=== PATIENT | female | born 1955 | race Caucasian/White ===

== ENCOUNTER 2021-06-11 13:13 | Emergency (ER) | payer MEDICARE ==
[~2021-06-11] VITALS: Ht 168.9 cm; Wt 78.1 kg
[2021-06-11 13:15] VITALS: BP_DIAS 61
[2021-06-11] MEDS ORDERED: HYDROcodone/APAP 5/325MG 1 TAB TABLET PO ONE (13:30)
--- NOTE | 2021-06-11 13:30 | PHYS DOC ---
Past History Past Medical History: Anxiety, Cancer (lung) Additional Past Medical Histor: IBS (OLIVIA KINNEY DO) Past Surgical History: Appendectomy, Cholecystectomy Additional Past Surgical Histo: Lobectomy (OLIVIA KINNEY DO) Smoking: Non-smoker Alcohol Use: Occasionally Drug Use: None (OLIVIA KINNEY DO) General Adult EDM: Chief Complaint: ANKLE PROBLEM HPI: HPI: Patient is a 65-year-old female who presents to the emergency department for left ankle pain and swelling that occurred after she slipped on a wet floor and fell. Patient reports that she heard a pop. She rates her pain 7 out of 10. No treatment prior to arrival. Patient reports decreased flexion due to pain and swelling. She denies hitting her head, loss of consciousness or decreased sensation to her foot. (VIKASH CRAIN APRN) Review of Systems: Review of Systems: HENT: See HPI Musculoskeletal: See HPI Integument: See HPI Neurologic: See HPI (VIKASH CRAIN APRN) Allergies: Allergies: Allergies Coded Allergies Type Severity Reaction Last Updated Verified sulfamethoxazole Allergy Unknown 06/11/21 Yes trimethoprim Allergy Unknown 06/11/21 Yes (VIKASH CRAIN APRN) Physical Exam: PE: Constitutional: Well developed, well nourished, no acute distress, non-toxic appearance. [] HENT: Normocephalic, atraumatic, bilateral external ears normal, oropharynx moist, no oral exudates, nose normal. [] Eyes: PERRL EOMI, conjunctiva normal, no discharge. [] Neck: Normal range of motion no stridor Cardiovascular: Normal peripheral perfusion Lungs & Thorax: Normal work of breathing, no tachypnea Abdomen: Soft and flat Skin: Warm, dry, no erythema, no rash. [] Back: No tenderness, normal range of motion Extremities: No tenderness, no cyanosis, no clubbing, ROM intact, no edema. [] Left ankle: Swelling noted to lateral aspect of left ankle, pain with patient to lateral aspect of left ankle, decreased flexion due to pain and swelling, full extension noted, patient able to move toes, neuro intact, no open wounds Neurologic: Alert and oriented X 3, normal motor function, normal sensory function, no focal deficits noted. [] Psychologic: Affect normal, judgement normal, mood normal. [] (VIKASH CRAIN APRN) EKG: EKG: [] (VIKASH CRAIN APRN) Radiology/Procedures: Radiology/Procedures: []PROCEDURE: ANKLE LEFT 3V Left ankle 3 views. HISTORY: Fall, ankle injury, swelling, pain 3 views were taken of the left ankle. There is a fracture of the distal fibula and lateral malleolus. There is mild displacement on the lateral view. There is lateral soft tissue swelling. No other fracture is noted. IMPRESSION: 1. Fracture distal fibula extending to the lateral malleolus. 2. Lateral soft tissue swelling. Electronically signed by: Mikey Garcia MD (06/11/2021 1:47 PM) [id number] DICTATED AND SIGNED BY: MIKEY GARCIA MD DATE: 06/11/21 3303 CC: ALIN HEARN MD; VIKASH CRAIN APRN ~ (VIKASH CRAIN APRN) Heart Score: C/O Chest Pain: N/A Risk Factors: Risk Factors: DM, Current or recent (<one month) smoker, HTN, HLP, family history of CAD, obesity. Risk Scores: Score 0 - 3: 2.5% MACE over next 6 weeks - Discharge Home Score 4 - 6: 20.3% MACE over next 6 weeks - Admit for Clinical Observation Score 7 - 10: 72.7% MACE over next 6 weeks - Early Invasive Strategies (VIKASH CRAIN APRN) Course & Med Decision Making: Course & Med Decision Making Pertinent Labs and Imaging studies reviewed. (See chart for details) [] Patient presents to the emergency department today for left ankle pain after she slipped on a wet floor and fell and heard a pop. Patient relates showed Fracture distal fibula extending to the lateral malleolus. She does not have any proximal tenderness. Patient's ankle placed in a posterior stirrup splint. She is neurovascularly intact. Splint placement. Patient discharged home with pain medication. Advised to apply ice and elevate. She was given Ortho referral. I discussed with patient all findings and diagnostic testing as well as the need to follow-up with PCP for further evaluation and treatment or return to the ER if any new or worsening symptoms. Strict return precautions were also discussed at length. Patient voiced understanding and agreement with the plan. Patient is hemodynamically stable at the time of disposition. (VIKASH CRAIN APRN) Dragon Disclaimer: Dragon Disclaimer: This electronic medical record was generated, in whole or in part, using a voice recognition dictation system. (VIKASH CRAIN SECURITIES TRADER) Departure Departure: Impression: Primary Impression: Fibula fracture Qualified Codes: S82.832A - Other fracture of upper and lower end of left fibula, initial encounter for closed fracture Disposition: HOME / SELF CARE / HOMELESS Condition: GOOD Referrals: ALIN HEARN MD (PCP) SEMAJ ARANA II, MD Patient Instructions: Fibular Fracture, Ankle, Adult, Treated with or without Immobilization Additional Instructions: [facility] You are seen in the emergency department today for an ankle injury. You have a fibula fracture. You had a splint placed to help with pain and healing. You will need to follow-up with the orthopedic doctors in the orthopedic clinic as soon as possible. Please see attached information regarding follow-up physician. You should perform range of motion exercises to prevent stiffness of your joints. Splints help with the pain and can promote healing but immobility can cause chronic pain over time. Please refer to these attached instructions regarding range of motion exercises. Keep the splint clean and dry avoid getting it wet. If the splint gets wet you will need to have it replaced. You should use ice and elevation to help with the swelling and pain. For the first 24 hours apply ice 20 minutes on 20 minutes off 4 times per day. Ensure that ice is in a plastic bag as to not get the splint wet. You may take NSAID medications (ibuprofen, naproxen) to help with the pain. You are being discharged home with a pain medication which is hydrocodone and Tylenol in combination tablet. This medication may cause sedation so do not take when he needs to be alert, try to be abusable or with alcohol. [facility] develop any of the following symptoms: Increasing pain that does not improve with treatments. New numbness or tingling Warmth, redness, skin discoloration, skin breakdown, drainage from under splint or near splinted area. Increasing inability to move your extremity or digits. Foul odor coming from splint Fevers or chills Nausea or vomiting Persistent lightheadedness We would be happy to see you for any other concerning symptoms regarding your splinted extremity. Scripts Hydrocodone Bit/Acetaminophen (HYDROCODONE-APAP 5-325 ) 1 Each Tablet 1 TAB PO PRN Q6HRS PRN for PAIN for 2 Days, #8 TAB 0 Refills Prov: VIKASH CRAIN SECURITIES TRADER 06/11/21 Attending Signature Attending Signature I have reviewed the PA/HISTORY INSTRUCTOR's note and plan of care. I was available for consultation as needed during the patient's visit in the emergency department. I agree with the clinical impression, plan, and disposition. (OLIVIA KINNEY DO) VIKASH CRAIN APRN Jun 11, 2021 13:30 OLIVIA KINNEY DO Jun 11, 2021 15:32
--- NOTE | 2021-06-11 13:49 | RAD ---
Left ankle 3 views. HISTORY: Fall, ankle injury, swelling, pain 3 views were taken of the left ankle. There is a fracture of the distal fibula and lateral malleolus . There is mild displacement on the lateral view. There is lateral soft tissue swelling. No other fra cture is noted. IMPRESSION: 1. Fracture distal fibula extending to the lateral malleolus. 2. Lateral soft tissue swelling. Electronically signed by: Mikey Garcia MD (06/11/2021 1:47 PM) [id number]
[2021-06-11] MEDS ORDERED: HYDR-2155 PO (14:02)
[2021-06-11 14:30] VITALS: BP_SYST 56
== END 2021-06-11 14:38 | disposition home or self-care (01) ==
LOC: ER 13:13
DX: S82.832A Other fracture of upper and lower end of left fibula, initial encounter for closed fracture (principal); Z88.2 Allergy status to sulfonamides; Z88.1 Allergy status to other antibiotic agents; W01.0XXA Fall on same level from slipping, tripping and stumbling without subsequent striking against object, initial encounter; Y93.89 Activity, other specified; Y92.89 Other specified places as the place of occurrence of the external cause; Y99.8 Other external cause status
CPT/HCPCS: 29515; 73610; 99283